=== PATIENT | male | born 1980 | race Caucasian/White ===

== ENCOUNTER 2019-03-21 17:34 | Emergency (ER) | payer OTHER ==
[~2019-03-21] VITALS: Ht 182.9 cm; Wt 92.8 kg
--- NOTE | 2019-03-21 17:52 | PHYS DOC ---
Past History Past Medical History: No Pertinent History Smoking: Cigarettes Drug Use: None Adult General Chief Complaint Chief Complaint: SHORTNESS OF BREATH HPI HPI Patient is a 38-year-old male who presents to the emergency department for evaluation. He states that for the past several weeks he has had a cough productive of yellowish sputum, and [facility], and was diagnosed with "walking pneumonia". He was given doxycycline as well as an albuterol inhaler but states he has not felt any better. He states that this morning he developed some sharp pleuritic left-sided and right-sided chest pain, and is felt some shortness of breath. He denies any exertional chest pain, dizziness or lightheadedness. Coughing seems to precipitate a headache, but he denies any other painful areas. He has not had any nausea, vomiting, or any definite fevers, but he states he has felt subjectively warm on and off for the past several weeks. There are no alleviating or exacerbating factors to his symptoms. Review of Systems Review of Systems Constitutional: Denies lethargy or chills [] Eyes: Denies change in visual acuity, redness, or eye pain [] HENT: Denies nasal congestion or sore throat [] Respiratory: No additional information not addressed in HPI [] Cardiovascular: No additional information not addressed in HPI [] GI: Denies abdominal pain, nausea, vomiting, bloody stools or diarrhea [] : Denies dysuria or hematuria [] Musculoskeletal: Denies back pain or joint pain [] Integument: Denies rash or skin lesions [] Neurologic: Denies focal weakness or sensory changes [] Endocrine: Denies polyuria or polydipsia [] All other systems were reviewed and found to be within normal limits, except as documented in this note. Allergies Allergies Allergies Coded Allergies Type Severity Reaction Last Updated Verified No Known Drug Allergies 03/21/19 No Physical Exam Physical Exam PHYSICAL EXAM: CONSTITUTIONAL: Well developed, well nourished HEAD: normocephalic, atraumatic EENT: PERRL, EOMI. Conjunctivae normal color, sclerae non-icteric; moist mucous membranes. NECK: Supple, non-tender; no meningismus. LUNGS: Lungs CTA, breathing even and unlabored. Normal air movement. HEART: Regular rate and rhythm, no murmur CHEST: No deformity; non-tender ABDOMEN: The abdomen is soft, and non-tender, no masses or bruits. EXTREM: Normal ROM; no deformity, no calf tenderness. Normal pulses palpable in all extremities. There is no pedal edema. SKIN: No rash; no diaphoresis NEURO: Alert; normal speech and cognition; CN's grossly intact; strength grossly intact without focal deficit. BACK: No CVA TTP. Current Patient Data Lab Results Laboratory Tests Test 03/21/19 17:57 White Blood Count 9.6 x10^3/uL Red Blood Count 4.79 x10^6/uL Hemoglobin 15.8 g/dL Hematocrit 45.4 % Mean Corpuscular Volume 95 fL Mean Corpuscular Hemoglobin 33 pg Mean Corpuscular Hemoglobin Concent 35 g/dL Red Cell Distribution Width 12.6 % Platelet Count 232 x10^3/uL Neutrophils (%) (Auto) 52 % Lymphocytes (%) (Auto) 37 % Monocytes (%) (Auto) 6 % Eosinophils (%) (Auto) 4 % Basophils (%) (Auto) 1 % Neutrophils # (Auto) 5.0 x10^3uL Lymphocytes # (Auto) 3.5 x10^3/uL Monocytes # (Auto) 0.6 x10^3/uL Eosinophils # (Auto) 0.4 x10^3/uL Basophils # (Auto) 0.1 x10^3/uL D-Dimer (Daphney) 0.27 mg/L Sodium Level 144 mmol/L Potassium Level 3.6 mmol/L Chloride Level 107 mmol/L Carbon Dioxide Level 28 mmol/L Anion Gap 9 Blood Urea Nitrogen 14 mg/dL Creatinine 1.4 mg/dL Estimated GFR (Cockcroft-Gault) 56.7 BUN/Creatinine Ratio 10 Glucose Level 117 mg/dL Calcium Level 9.0 mg/dL Total Bilirubin 0.3 mg/dL Aspartate Amino Transf (AST/SGOT) 29 U/L Alanine Aminotransferase (ALT/SGPT) 43 U/L Alkaline Phosphatase 58 U/L Creatine Kinase 398 U/L Creatine Kinase MB (Mass) 2.4 ng/mL Creatine Kinase MB Relative Index 0.6 % Troponin I Quantitative < 0.017 ng/mL Total Protein 7.0 g/dL Albumin 3.9 g/dL Albumin/Globulin Ratio 1.3 Current Medications Medications (Trade) Dose Ordered Sig/Varghese Route PRN Reason Start Time Stop Time Status Last Admin Dose Admin Acetaminophen (Tylenol) 1,000 mg 1X ONCE PO 03/21/19 18:00 03/21/19 18:01 DC 03/21/19 18:00 EKG EKG []Normal sinus rhythm at a rate of 75 beats for minute, normal axis, normal intervals. There are no acute ischemic ST/T changes. Radiology/Procedures Radiology/Procedures PROCEDURE: CHEST PA & LATERAL Two-view chest dated 03/21/2019. No comparison available. Clinical data indication: Shortness of breath. FINDINGS: PA and lateral views obtained. Heart and mediastinal contours are within normal limits. Lungs are clear. No consolidation or pleural effusion. No pneumothorax. Mildly prominent perihilar linear markings, nonspecific. IMPRESSION:. No acute radiographic abnormality. [] Course & Med Decision Making Course & Med Decision Making Pertinent Labs and Imaging studies reviewed. (See chart for details) []7:00 PM:Patient remains stable. I discussed test results, the need for close follow-up, and return precautions. I specifically discussed importance of smoking cessation with the patient. Vital signs including oxygen saturation remained stable. Dragon Disclaimer Dragon Disclaimer This electronic medical record was generated, in whole or in part, using a voice recognition dictation system. Departure Departure: Impression: Primary Impression: Bronchitis Disposition: 01 HOME, SELF-CARE Condition: STABLE Patient Instructions: Bronchitis, Shortness of Breath, Smoking Cessation Additional Instructions: Follow-up with the primary care provider of your choice for further evaluation. Return to medical care for any new or worsening, increasing trouble breathing, or any other concerning symptoms. JESSICA ROB MD Mar 21, 2019 17:52
[2019-03-21] MEDS ORDERED: ACETAMINOPHEN 500 MG TABLET PO ONE (18:00)
--- NOTE | 2019-03-21 18:04 | EKG ---
[address] [address] Test Date: 2019-03-21 Test Time: 17:54:16 Pat Name: ALIS CROSS Department: Room: Gender: M Correspondent: HUGH : 1980 Requested By: JESSICA ROB Order Number: [id number] Reading MD: Measurements Intervals [place] Rate: 75 P: 43 HI: 202 QRS: -8 QRSD: 88 T: 20 QT: 362 QTc: 407 Interpretive Statements SINUS RHYTHM LEFTWARD AXIS OTHERWISE NORMAL ECG RI6.01 No previous ECG available for comparison
[2019-03-21 18:15] LABS: BASO # 0.1 x10^3/uL (0.0-0.2); BASO % 1 % (0-3); EOS # 0.4 x10^3/uL (0.0-0.7); EOS % 4 % (0-3); HEMATOCRIT 45.4 % (39.0-53.0); HEMOGLOBIN 15.8 g/dL (13.0-17.5); LYMPH # 3.5 x10^3/uL (1.0-4.8); LYMPH % 37 % (24-48); MEAN CORPUSCULAR HEMOGLOBIN 33 pg (25-35); MEAN CORPUSCULAR HGB CONC 35 g/dL (31-37); MEAN CORPUSCULAR VOLUME 95 fL (79-100); MONO # 0.6 x10^3/uL (0.0-1.1); MONO % 6 % (0-9); NEUT % 52 % (31-73); PLATELET COUNT 232 x10^3/uL (140-400); RED BLOOD COUNT 4.79 x10^6/uL (4.30-5.70); RED CELL DISTRIBUTION WIDTH 12.6 % (11.5-14.5); WHITE BLOOD COUNT 9.6 x10^3/uL (4.0-11.0)
--- NOTE | 2019-03-21 18:21 | RAD ---
Two-view chest dated 03/21/2019. No comparison available. Clinical data indication: Shortness of breath. FINDINGS: PA and lateral views obtained. Heart and mediastinal contours are within normal limits. Lungs are clear. No consolidation or pleural effusion. No pneumothorax. Mildly prominent perihilar linear markings, nonspecific. IMPRESSION:. No acute radiographic abnormality. Electronically signed by: Brown Chinchilla MD (03/21/2019 6:18 PM) [facility]
[2019-03-21 18:39] LABS: ALBUMIN 3.9 g/dL (3.4-5.0); ALBUMIN/GLOBULIN RATIO 1.3 (1.0-1.7); CREATININE 1.4 mg/dL (0.7-1.3); GFR 56.7; POTASSIUM 3.6 mmol/L (3.5-5.1); TOTAL BILIRUBIN 0.3 mg/dL (0.2-1.0)
[2019-03-21 19:27] VITALS: BP 123/65
== END 2019-03-21 19:26 | disposition home or self-care (01) ==
LOC: ER 17:34
DX: J40 Bronchitis, not specified as acute or chronic (principal); F17.210 Nicotine dependence, cigarettes, uncomplicated
CPT/HCPCS: 36415; 71046; 80053; 82553; 84484; 85025; 85379; 93005; 99285